=== PATIENT | male | born 1955 | race African-American/Black ===

== ENCOUNTER 2017-11-18 10:09 | Outpatient (CLI) | payer BC ==
[~2017-11-18 10:09] MED LIST: Iopamidol 370 76% 100 ML VIAL ONE
[2017-11-18 10:39] LABS: Estimated GFR-MDRD - POC Greater than 90
--- NOTE | 2017-11-18 11:28 | CT ---
CT ANGIOGRAM CHEST: HISTORY: Follow-up exam. History of aneurysm. Dissection of aorta. COMPARISON: None. CORRELATION: CT angiogram of the abdominal aorta on 08/02/2009. TECHNIQUE: A CT angiogram of the thoracic aorta is performed in the axial plane, and three-dimensional reformatt ed images are submitted for interpretation. FINDINGS: No mediastinal mass, lymphadenopathy, or hematoma. Heart size is upper normal. No significant peric ardial fluid. There is evidence of right heart failure with reflux of contrast into the inferior rufus a cava and the hepatic veins. There is appropriate enhancement of the solid organs. Bilateral adren al gland hyperplasia is noted. Trachea and central bronchi are patent. Dependent atelectatic changes. No consolidation or masses. No pleural effusion. NO pneumothorax. No lytic or blastic lesions in the osseous structures. There is a prosthetic aortic valve. There is circumferential calcified and noncalcified atherosclero tic disease. 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 There is mild p rominence of the focal left and right coronary bypasses. Significance is uncertain. The ascending t horacic aorta, the aortic arch, and the descending thoracic aorta have an overall normal caliber. No evidence of dissection. No periaortic fat stranding. Adequate contrast opacification of the central pulmonary arteries. No filling defect to suggest thro mboembolism. Grossly normal proximal carotid and subclavian arteries. IMPRESSION: 1. Prosthetic aortic valve. 2. There is atherosclerosis involving the proximal thoracic aorta. No evidence of significant occlu floyd. No evidence of aneurysm or dissection. 3. Mild dilatation of the coronary artery bypass grafts at the proximal aspect. 4. Right heart failure. POS: [facility]
== END 2017-11-18 10:10 | disposition home or self-care (01) ==
LOC: CT 10:09
PROVIDERS: ATTEND Thoracic Surgery (Cardiothoracic Vascular Surgery)
DX: I71.00 Dissection of unspecified site of aorta (principal); I70.0 Atherosclerosis of aorta; I50.810 Right heart failure, unspecified; I25.41 Coronary artery aneurysm; Z95.2 Presence of prosthetic heart valve; Z95.1 Presence of aortocoronary bypass graft
CPT/HCPCS: 71275; 82565